=== PATIENT | male | born 1955 | race Hispanic/Latino ===

== ENCOUNTER 2020-12-31 04:03 | Emergency (ER) | payer OTHER ==
[2020-12-31 04:56] VITALS: BP 126/85
--- NOTE | 2020-12-31 05:34 | Emergency Department Report ---
ED General Adult HPI - General Chief complaint: Laceration/Recheck/Suture Stated complaint: STITCHES TORN OPEN;WOUND CHECK Time Seen by Provider: 12/31/20 05:19 Source: patient Mode of arrival: Ambulatory Limitations: No Limitations - History of Present Illness Initial comments: This 5-year-old male status post lesion removal from there with his neck earlier this month around the first and it was sutured up for closure. States that he was doing something prior to arrival and the wound popped open he presents to the emergency department for wound evaluation and for further treatment. Reports no fever, chills, sweats reports no chest pain palpitation reports no nausea vomiting. Radiation: non-radiation Quality: dull Consistency: constant Improves with: none Worsens with: none Associated Symptoms: denies other symptoms Treatments Prior to Arrival: none - Related Data Allergies Allergy/AdvReac Type Severity Reaction Status Date / Time No Known Allergies Allergy Unverified 12/31/20 04:56 ED Review of Systems ROS: Stated complaint: STITCHES TORN OPEN;WOUND CHECK Other details as noted in HPI Comment: All other systems reviewed and negative ED Past Medical Hx - Past Medical History Previous Medical History?: Yes - Surgical History Past Surgical History?: Yes - Social History Smoking Status: Never Smoker Substance Use Type: None ED Physical Exam - General Limitations: No Limitations General appearance: alert, in no apparent distress - Head Head exam: Present: atraumatic, normocephalic - Eye Eye exam: Present: normal appearance - ENT ENT exam: Present: mucous membranes moist - Neck Neck exam: Present: normal inspection - Expanded Neck Exam Expanded 1 - Wound site dehisced with small amount of pus buildup. No cellulitis. No lymphangitis. No subcutaneous emphysema no crepitus - Respiratory Respiratory exam: Present: normal lung sounds bilaterally. Absent: respiratory distress - Cardiovascular Cardiovascular Exam: Present: regular rate, normal rhythm. Absent: systolic murmur, diastolic murmur, rubs, gallop - GI/Abdominal GI/Abdominal exam: Present: soft, normal bowel sounds - Rectal Rectal exam: Present: deferred - Extremities Exam Extremities exam: Present: normal inspection - Back Exam Back exam: Present: normal inspection - Neurological Exam Neurological exam: Present: alert, oriented X3 - Psychiatric Psychiatric exam: Present: normal affect, normal mood - Skin Skin exam: Present: warm, dry, erythema. Absent: rash, diaphoretic, urticaria, pallor, ecchymosis ED Course Vital Signs 12/31/20 04:53 Temperature 98 F Pulse Rate 78 Respiratory 18 Rate Blood Pressure 126/85 O2 Sat by Pulse 100 Oximetry - Procedure Description Procedures done: Sutures were removed in entirety. Wound was cleaned and also debrided. Steri-Strips were placed x5 and bandage placed on wound. Procedure tolerated well no complications Critical care attestation.: If time is entered above; I have spent that time in minutes in the direct care of this critically ill patient, excluding procedure time. ED Disposition Clinical Impression: Wound dehiscence, Encounter for wound re-check Disposition: DC-01 TO HOME OR SELFCARE Is pt being admited?: No Does the pt Need Aspirin: No Condition: Stable Instructions: Wound Dehiscence Referrals: PRIMARY CARE, [Primary Care Provider] - 3-5 Days
== END 2020-12-31 05:48 | disposition home or self-care (01) ==
LOC: ED 04:03
DX: T81.30XA Disruption of wound, unspecified, initial encounter (principal); Z51.89 Encounter for other specified aftercare; Z98.890 Other specified postprocedural states; Y84.9 Medical procedure, unspecified as the cause of abnormal reaction of the patient, or of later complication, without mention of misadventure at the time of the procedure; Y92.89 Other specified places as the place of occurrence of the external cause
CPT/HCPCS: 99282